=== PATIENT | female | born 1980 | race American Indian/Alaskan Native ===

== ENCOUNTER 2020-01-09 09:20 | Outpatient (CLI) | payer OTHER, SELFPAY ==
[2020-01-10 14:04] LABS: SARS-CoV-2 RNA PCR Positive
== END 2020-01-09 09:21 | disposition home or self-care (01) ==
LOC: CHSLAB 09:24
PROVIDERS: PCP Family Medicine; Visit Provider Family Medicine
DX: U07.1 COVID-19 (principal)
CPT/HCPCS: 87635; C9803; U0003

== ENCOUNTER 2020-09-17 13:20 | Outpatient (CLI) | payer OTHER, SELFPAY ==
[2020-09-17 14:20] LABS: Hematocrit 35.3 % (37.0-47.0); Hemoglobin 11.5 g/dL (12.0-15.0)
== END 2020-09-17 13:21 | disposition home or self-care (01) ==
LOC: ANHSURGERY 13:24
PROVIDERS: PCP Family Medicine; Visit Provider Obstetrics & Gynecology
DX: N93.9 Abnormal uterine and vaginal bleeding, unspecified (principal)
CPT/HCPCS: 36415; 85014; 85018

== ENCOUNTER → 2020-09-20 03:43 | Outpatient (CLI) | payer OTHER, SELFPAY ==
[2020-09-20 18:53] LABS: SARS-CoV-2 RNA PCR Negative
== END ==
PROVIDERS: PCP Family Medicine; Visit Provider Obstetrics & Gynecology
DX: Z01.812 Encounter for preprocedural laboratory examination (principal); Z20.822 Contact with and (suspected) exposure to COVID-19
CPT/HCPCS: C9803; U0003; U0005

== ENCOUNTER 2020-09-23 01:12 | Day surgery (SDC) | payer OTHER, SELFPAY ==
[2020-09-16 14:13] VITALS: BMI 33.0
--- NOTE | 2020-09-21 07:51 | PM.IMHP ---
H&P: HPI History of Present Illness Date/Time: 09/21/20 07:51 40-year-old admitted for hysteroscopy polypectomy and dilatation curettage. She complains of heavy periods and there appears to be a polyp in the endocervix. Risks and benefits reviewed in full. She will undergo ablation at the same time Chief Complaint: heavy bleeding and polyp Review of Systems Review of Systems: All systems reviewed & are unremarkable except as noted in HPI and below PMFSH Family History Family History Grandparent Diabetes mellitus Family history of type 1 diabetes mellitus Mother Depression Hypertension Social History Social History Smoking status: Never smoker Second hand tobacco smoke exposure: No Alcohol intake: never Substance use: current Substance use type: marijuana Last use: 09-14-20 Spiritual care concerns: No Meds Home Medications and Allergies Home Medications Medication Instructions Recorded Confirmed Type metoprolol succinate 50 mg PO DAILY 09/16/20 09/16/20 History venlafaxine 225 mg PO DAILY 09/16/20 09/16/20 History Allergies Allergy/AdvReac Type Severity Reaction Status Date / Time No Known Allergies Allergy Unknown Verified 09/16/20 14:10 Exam Const: General: no acute distress Eyes: General: appearance normal, both eyes and all related structures Neck: Neck: supple and no JVD Thyroid: thyroid normal Resp: Effort & Inspection: normal respiratory effort Auscultation: clear to auscultation bilaterally Cardio: Rate: regular rate Rhythm: regular rhythm GI: Inspection: non-distended GI Palp: Yes Soft to palpation, No Tenderness to palpation present (GI) and No Guarding due to palpation present (GI) Auscultation: normal bowel sounds : General: Yes bladder normal to palpation External Female Exam: normal external appearance Speculum Exam - Vagina: normal vaginal discharge and No vaginal bleeding Speculum Exam - Cervix: nontender Bimanual exam- vagina & uterus: bladder normal to palpation and No Cervical tenderness present OB/external & speculum: No vaginal bleeding Skin: General skin exam: no rashes or lesions noted Extrem: General: normal to inspection and no edema Psych: Mental Status: mental status grossly normal Affect: normal affect Assessment and Plan Additional Plan impression: Uterine polyp and bleeding Plan: Hysteroscopy/ dilatation and curettage/polypectomy / endometrial ablation
--- NOTE | 2020-09-23 06:59 | WPDHPUPDATE1 ---
History and Physical Update Update Date/Time: 09/23/20 06:59 History and Physical has been reviewed, including an updated exam of the patient. There are NO changes in the patient's condition. Risks, benefits, and alternatives have been discussed and questions answered. Patient agrees to proceed with procedure.
[2020-09-23 07:29] VITALS: BP 174/103; PULSE 74; RESP 16; TEMP 36.4; O2SAT 100
[2020-09-23] MEDS: ACETAMINOPHEN 500 MG TABLET 1000 MG PO (07:39)
[2020-09-23] MEDS: LACTATED RINGERS 1,000 ML 30 ML IV CONT (08:00)
--- NOTE | 2020-09-23 08:12 | WPDANESEPPF ---
Anes - Initial Pre Proc Eval Procedure: Operation Date: 09/23/20 09:00 Proposed Procedures p Hysteroscopy, Dilation and Curettage, Polypectomy, Tracey Endometrial Ablation - Reinier Steele MD Date/Time: 09/23/20 08:12 Surgeon: Reinier Steele MD Pre Op Diagnosis: heavy bleeding, uterine polyp Patient Data Age: 40 Gender: F Height: 1.57 m Weight: 85 kg Last Vital Signs Temp 36.4 C 09/23/20 07:29 Pulse 74 09/23/20 07:29 Resp 16 09/23/20 07:29 BP 174/103 H 09/23/20 07:29 Pulse Ox 100 09/23/20 07:29 Allergies Allergy/AdvReac Type Severity Reaction Status Date / Time No Known Allergies Allergy Unknown Verified 09/23/20 07:34 Home Medications Medication Instructions Recorded Confirmed Type metoprolol succinate 50 mg PO DAILY 09/16/20 09/23/20 History venlafaxine 225 mg PO DAILY 09/16/20 09/23/20 History hydrocodone-acetaminophen 1 tablet PO Q4H PRN #20 tablet 09/23/20 Rx zpoxmivkdsgs-yiyw-ziwih acid 1 tablet PO DAILY 09/23/20 09/23/20 History [Centrum] Patient hx anesthesia problems: none Family hx anesthesia problems: none PMFSH Past Medical History Medical History (Updated 09/23/20 @ 08:15 by Patel Echols MD) Abnormal uterine bleeding Depression HTN (hypertension) Family History Family History Grandparent Diabetes mellitus Family history of type 1 diabetes mellitus Mother Depression Hypertension Social History Social History Smoking status: Never smoker Second hand tobacco smoke exposure: No Alcohol intake: never Substance use: current Substance use type: marijuana Last use: 09-14-20 Living arrangements: with family Spiritual care concerns: No Anes - Eval Final PreProcedure Day of Procedure 09/23/20 08:12 Patient weight: obese Heart: regular rate and rhythm Lungs: clear to auscultation and normal air movement Airway: Mallampati scale class II Neurological: alert and oriented Last oral intake: >/= 8 hours ASA classification: II Emergent: no Anesthetic plan: proceed Anesthesia type and monitoring: general GIVS and LMA Informed Consent: The patient's anesthetic plan and its attendant risks and benefits were discussed with the patient/family/POA. Questions were solicited and answers provided to the satisfaction of the patient/family/POA.
[2020-09-23] MEDS: KETOROLAC 30 MG/ML VIAL (*BKC) 15 MG IV PUSH (09:07)
[2020-09-23 09:30] VITALS: BP 119/71; PULSE 70; RESP 18; O2SAT 94
--- NOTE | 2020-09-23 09:31 | W.PM.PROC2 ---
Procedure Note - Detailed Date of Procedure 09/23/20 Pre-op Diagnosis heavy bleeding, uterine polyp Post-op Diagnosis same Procedure Performed Hysteroscopy / dilatation and curettage/polypectomy / endometrial ablation Surgeon Reinier Steele MD Anesthesia MAC and local Indications this is a patient with excessive heavy bleeding and suspected polyp Findings uterus sounded to7.5cm. A fundal polyp with benign appearance Description of Procedure the patient is prepped draped and placed in the dorsal lithotomy position. Under excellent IV sedation weighted speculum was placed in the posterior fornix vagina. Anterior lip of the cervix grasped with single-tooth tenaculum and 2.5cc of 1% xylocaine anesthesia placed at 2, 4, 8, 10:00 a.m. of the cervix. Uterus sounded to7.5cm. Serial dilatation with fragmented dilators performed followed by passage of the 5mm visualizing hysteroscope using normal saline as visualizing medium. Small polyp was seen at the fundus and this was picked with a polyp forcep. Each fallopian tube os could be seen and the remainder the uterus appeared within normal limits. The uterus was scraped over the entire 360? until a good grating sound was heard. Next the endometrial ablated instrument was placed in the uterus. It was burned for a total of 120seconds. Blood loss was estimated at5cc. All sponge, needle, instrument counts were correct. There were no immediate complications Estimated Blood Loss 5 Drains No Packing No Pathology yes Complications No immediate complications Condition stable Disposition PACU
[2020-09-23 09:45] VITALS: BP 120/80; PULSE 65; RESP 20; O2SAT 96
[2020-09-23 10:15] VITALS: BP 163/101; PULSE 62; RESP 20
[2020-09-23] MEDS: oxyCODONE HCL (*CRX) 5 MG TAB IR PO (10:17)
[2020-09-23 10:45] VITALS: BP 173/94; PULSE 58; RESP 20
== END 2020-09-23 11:00 | disposition home or self-care (01) ==
PROVIDERS: PCP Family Medicine; Visit Provider Obstetrics & Gynecology
PROC: 0U5B8ZZ Destruction of Endometrium, Via Natural or Artificial Opening Endoscopic (ICD-10-PCS; CPT 58563; principal; 2020-09-23 09:00)
DX: N93.9 Abnormal uterine and vaginal bleeding, unspecified (principal); F12.90 Cannabis use, unspecified, uncomplicated; N84.0 Polyp of corpus uteri; F32.9 Major depressive disorder, single episode, unspecified; I10 Essential (primary) hypertension; E66.9 Obesity, unspecified; Z68.34 Body mass index [BMI] 34.0-34.9, adult
CPT/HCPCS: 58563; 88305; A9270; C9803; J1100; J1885; J2250; J2405; J2704; J3010; J7030; J7120; U0003; U0005

== ENCOUNTER 2020-11-13 08:30 | Outpatient (CLI) | payer OTHER, SELFPAY ==
[2020-11-13 08:41] LABS: Basophils Absolute Auto 0.07 K/mm3 (0.00-0.10); Basophils Percent Auto 0.5 % (0.0-1.0); Eosinophils Percent Auto 2.3 % (1.0-6.0); Hematocrit 38.2 % (35.0-49.0); Hemoglobin 12.4 g/dL (12.0-15.0); Immature Granulocyte Absolute 0.05 K/mm3 (0.00-0.00); Immature Granulocyte Percent A 0.4 % (0.0-0.0); Lymphocytes Absolute Auto 4.17 K/mm3 (1.10-4.50); Mean Corpuscular HGB Conc 32.5 g/dL (32.0-36.0); Mean Corpuscular Hemoglobin 27.9 pg (27.0-31.0); Mean Corpuscular Volume 85.8 fL (78.0-102.0); Mean Platelet Volume 8.9 fl (9.2-11.8); Monocytes Absolute Auto 0.95 K/mm3 (0.10-0.90); Monocytes Percent Auto 7.3 % (2.0-11.0); Neutrophils Absolute Auto 7.5 K/mm3 (1.7-7.2); Neutrophils Percent Auto 57.5 % (50.0-70.0); Platelet Count Result 493 K/mm3 (150-420); Red Blood Count 4.45 M/mm3 (4.20-5.40); Red Cell Distribution Width 14.4 % (11.6-14.4); White Blood Count 13.1 K/mm3 (4.8-10.8)
[2020-11-13 09:14] LABS: Alanine Aminotransferase 25 U/L (14-59); Albumin Level 4.1 g/dL (3.4-5.0); Alkaline Phosphatase 97 U/L (46-116); Anion Gap 12 mmol/L (8-16); Aspartate Amino Transferase 14 U/L (15-37); Bilirubin,Total 0.3 mg/dL (0.00-1.00); Blood Urea Nitrogen 10 mg/dL (7-18); Calcium 8.8 mg/dL (8.5-10.1); Carbon Dioxide 25 mmol/L (21-32); Chloride 105 mmol/L (98-108); Cholesterol 222 mg/dL (0-200); Estimated Glomerular Filt Rate > 60; Glucose 97 mg/dL (70-99); HDL Direct 31 mg/dL (40-60); Iron 45 ug/dL (50-170); LDL Cholesterol Calculated 131 mg/dL (<130); Osmolality Calculated 293 mOsm/kg (285-295); Percent Iron Saturation 11 % (12-57); Sodium 142 mmol/L (136-145); Thyroid Stimulating Hormone 5.95 uIU/mL (0.36-3.74); Total Protein 7.5 g/dL (6.4-8.2); Triglycerides 301 mg/dL (0-150)
== END 2020-11-13 08:31 | disposition home or self-care (01) ==
LOC: CHSLAB 08:32
PROVIDERS: PCP Family Medicine; Visit Provider Family Medicine
DX: D50.0 Iron deficiency anemia secondary to blood loss (chronic) (principal); I10 Essential (primary) hypertension; F32.1 Major depressive disorder, single episode, moderate; Z13.220 Encounter for screening for lipoid disorders
CPT/HCPCS: 36415; 80053; 80061; 83540; 83550; 84443; 85025

== ENCOUNTER 2021-05-19 11:13 | Outpatient (CLI) | payer OTHER, SELFPAY ==
--- NOTE | ~2021-05-19 | CT_ITS ---
EXAMINATION: CT abdomen pelvis wo con EXAM DATE: 05/19/2021 11:33 INDICATION: R31.0 - Gross hematuria, right flank pain. Nausea, dry heaving. TECHNIQUE: Spiral CT of the abdomen and pelvis was performed without contrast. Axial, coronal and sag ittal images were reviewed. The dose-length product (DLP) for this examination was 508.21 mGy-cm. T he exposure was tailored according to patient size (auto mA exposure control), and iterative reconstr uction (ASIR) was used as additional dose reduction technique. There is no prior study for compariso n. FINDINGS: Small supraumbilical midline fat-containing hernia. There is no nephrolithiasis or hydronep hrosis. The uterus is retroverted and morphologically normal. The bladder is unremarkable. The l iver, spleen, adrenal glands and pancreas are unremarkable. Gallbladder is unremarkable. No biliary obstruction. There is no retroperitoneal or pelvic lymphadenopathy. The appendix is normal. The stomach and small bowel are unremarkable. There is expected amount of c olonic stool. No free intraperitoneal gas. The heart is normal in size. There are no pericardial or pleural effusions. The lung bases are unremarkable. The bones are unremarkable. IMPRESSION: 1. No nephrolithiasis, hydronephrosis or acute intra-abdominal findings. 2. Small supraumbilical fat-containing hernia. Reviewed, dictated and finalized at location B.
== END 2021-05-19 11:14 ==
PROVIDERS: PCP Family Medicine; Visit Provider Family Medicine
DX: N20.9 Urinary calculus, unspecified (principal); R10.9 Unspecified abdominal pain; R31.0 Gross hematuria; K42.9 Umbilical hernia without obstruction or gangrene
CPT/HCPCS: 74176

== ENCOUNTER 2021-07-02 12:55 | Outpatient (CLI) | payer OTHER, SELFPAY ==
--- NOTE | 2021-07-02 13:13 | ECG_ITS ---
Measurements Intervals [place] Rate: 67 P: 37 IN: 135 QRS: 17 QRSD: 90 T: 22 QT: 384 QTc: 406 Interpretive Statements SINUS RHYTHM INCOMPLETE RIGHT BUNDLE BRANCH BLOCK BASELINE ARTIFACT- I, II, III, AVR, AVL, AVF BORDERLINE ECG Electronically Signed On 07-02-2021 13:42:37 CDT by Edilberto Youngblood D.O.
[2021-07-02 13:37] LABS: Basophils Absolute Auto 0.1 K/mm3 (0.0-0.1); Basophils Percent Auto 0.5 % (0.2-1.2); Eosinophils Absolute Auto 0.2 K/mm3 (0-0.3); Eosinophils Percent Auto 1.8 % (0-4.4); Hematocrit 37.7 % (37.0-47.0); Hemoglobin 12.8 g/dL (12.0-15.0); Immature Granulocyte Absolute 0.03 K/mm3 (0.00-0.031); Immature Granulocyte Percent A 0.3 % (0-0.5); Lymphocytes Absolute Auto 2.94 K/mm3 (0.9-3.2); Lymphocytes Percent Auto 31.5 % (18.3-44.2); Mean Corpuscular Hemoglobin 30.3 pg (26-34); Mean Corpuscular Volume 89.3 fl (80-100); Mean Platelet Volume 9.3 fl (7.4-10.4); Monocytes Absolute Auto 0.9 K/mm3 (0.1-0.6); Monocytes Percent Auto 9.4 % (2.6-8.5); Neutrophils Absolute Auto 5.3 K/mm3 (1.3-6.7); Neutrophils Percent Auto 56.5 % (45.5-73.1); Platelet Count Result 420 k/mm3 (150-375); Red Blood Count 4.22 M/mm3 (4.2-5.4); Red Cell Distribution Width 13.6 % (11.5-14.5); White Blood Count 9.3 K/mm3 (4.5-10.0)
== END 2021-07-02 12:56 | disposition home or self-care (01) ==
LOC: ANHSURGERY 12:59
PROVIDERS: PCP Family Medicine; Visit Provider Obstetrics & Gynecology
DX: D21.9 Benign neoplasm of connective and other soft tissue, unspecified (principal); I10 Essential (primary) hypertension; I45.10 Unspecified right bundle-branch block
CPT/HCPCS: 36415; 85025; 86850; 86900; 86901; 93005

== ENCOUNTER 2021-07-04 01:17 | Day surgery (SDC) | payer OTHER, SELFPAY ==
--- NOTE | 2021-07-01 11:16 | PM.IMHP ---
H&P: HPI History of Present Illness Date/Time: 07/01/21 11:16 41-year-old 3 para 3 admitted for robotic total hysterectomy and bilateral salpingectomy secondary to uterine fibroids pelvic pain and failed ablation with irregular bleeding. She has gotten ultrasound shows a retroverted uterus with fibroids her the your ablation has failed she continues to bleed irregularly risks and benefits reviewed including but not exclusive of aspiration when he bleeding transfusion infection perforation injury to bowel bladder ureters or other internal organs the need for open laparotomy. She received the [employer] handout entitled hysterectomy. She received the handout from [employer]. She asked to proceed Chief Complaint: Pelvic pain and bleeding Review of Systems Review of Systems: All systems reviewed & are unremarkable except as noted in HPI and below PMFSH Past Medical History Medical History Abnormal uterine bleeding Anemia BMI 32.0-32.9,adult BMI 33.0-33.9,adult BMI 34.0-34.9,adult Depression Flank pain Hematuria HTN (hypertension) Hypothyroidism Insomnia Urinary calculus, unspecified Family History Family History Grandparent Diabetes mellitus Family history of type 1 diabetes mellitus Mother Depression Hypertension Social History Social History Second hand tobacco smoke exposure: No Alcohol intake: never Substance use: current Substance use type: marijuana Last use: 09-14-20 Spiritual care concerns: No Meds Home Medications and Allergies Home Medications Medication Instructions Recorded Confirmed Type xqrewxrdcsxb-ivfn-kwtnz acid 1 tablet PO DAILY 09/23/20 05/19/21 History [Centrum] metoprolol succinate 50 mg 50 mg PO DAILY #90 tablet 02/13/21 05/19/21 Rx tablet,extended release 24 hr fluoxetine 20 mg capsule 20 mg PO DAILY #90 cap 03/13/21 05/19/21 Rx levothyroxine 50 mcg tablet 50 mcg PO DAILY #90 tablet 05/14/21 05/19/21 Rx tramadol 50 mg tablet 50 mg PO Q8H PRN #30 tablet 05/19/21 05/19/21 Rx bupropion HCl 150 mg 24 hr tablet, 150 mg PO QAM #90 tablet 06/06/21 Rx extended release Allergies Allergy/AdvReac Type Severity Reaction Status Date / Time No Known Allergies Allergy Unknown Verified 05/19/21 08:44 Exam Const: General: no acute distress Eyes: General: appearance normal, both eyes and all related structures Neck: Neck: supple and no JVD Thyroid: thyroid normal Resp: Effort & Inspection: normal respiratory effort Auscultation: clear to auscultation bilaterally Cardio: Rate: regular rate Rhythm: regular rhythm GI: Inspection: non-distended GI Palp: Yes Soft to palpation, No Tenderness to palpation present (GI) and No Guarding due to palpation present (GI) Auscultation: normal bowel sounds : External Female Exam: normal external appearance Speculum Exam - Vagina: normal appearance of the vagina Speculum Exam - Cervix: Cervical os closed Bimanual exam- vagina & uterus: enlarged and fixed Bimanual Exam- Adnexa, other: normal adnexae Skin: General skin exam: no rashes or lesions noted Extrem: General: normal to inspection and no edema Psych: Mental Status: mental status grossly normal Affect: normal affect Assessment and Plan Additional Plan Impression: Enlarged uterus with pelvic pain and bleeding and failed ablation Plan: Robotic total vaginal hysterectomy and bilateral salpingectomies
[2021-07-01 14:58] VITALS: BMI 31.4
--- NOTE | 2021-07-01 15:02 | PC.NURSE ---
Report to the Outpatient Waiting Room, entrance under the green pavilion located off [facility], at time _0600_ on date _07-04-21_. OR Time: _07_. - You and your visitor will be asked a series of questions to screen for COVID 19 for your protection. - Only one visitor is allowed at this time. - The patient visitor is requested to leave or wait in car when not with patient. - A mask is required within the hospital. Patients may have clear liquids (water, carbonated beverages, clear teas, apple juice) until 3 hours prior to surgery with a maximum of 20 ounces. - No food from midnight until time of surgery Take the following medications with a SIP of water the morning of surgery: ____Metoprolol, Bupropion, Fluoxetine and Levothyroxine___ Medications to discontinue per physician ___Multivitamin Date to take last dose___Stop today.____ Please no make-up, nail english, hairspray, perfume, deodorant, or body powder the day of surgery. No jewelry (including any body piercings) or valuables the day of surgery, leave them at home. Please take a shower or bath the night before, or the morning of, surgery with an antibacterial soap. Wear comfortable, loose fitting clothing. Children are encouraged to wear pajamas. - Jewelry must be removed prior to entering the operating room. Rings and piercings that are not removed may be cut off. - The hospital will not accept responsibility for valuables. - Please leave all valuables, including medications, at home the day of surgery. If you are going home after surgery, a licensed bulk driver must drive you home. - NO public transportation without another adult. - We recommend that an adult stay with you for 24 hours following discharge. - We also recommend that you do not drive, make important decision, drink alcoholic beverages, or take any drugs that were not prescribed by your health care provider for at least 24 hours after your discharge time. Follow any additional instructions given to you from your surgeon. If you or anyone in your household have experienced Covid symptoms in the past week, please notify your surgeon or the nurse liaison at the phone number below for possible testing. Telephone instructions given to Patient and asked if any additional questions and then verbalized understanding. Patient advised to call surgeon office or pre surgery nurse liaison [phone] if any additional questions.
[2021-07-04] VITALS (13 sets, daily range): BP systolic 138–166; BP diastolic 85–108; PULSE 61–78; RESP 10–20; TEMP 36.2–37.2; O2SAT 96–100
--- NOTE | 2021-07-04 06:43 | WPDHPUPDATE1 ---
History and Physical Update Update Date/Time: 07/04/21 06:43 History and Physical has been reviewed, including an updated exam of the patient. There are NO changes in the patient's condition. Risks, benefits, and alternatives have been discussed and questions answered. Patient agrees to proceed with procedure.
--- NOTE | 2021-07-04 06:54 | P.PNAN_ITS ---
Anes - Initial Pre Proc Eval Procedure: Operation Date: 07/04/21 07:30 Proposed Procedures p Robotic Assisted Total Vaginal Hysterectomy with Bilateral Salpingectomy - Reinier Ross MD Date/Time: 07/04/21 06:54 Surgeon: Reinier Ross MD Pre Op Diagnosis: fibroids, pelvic pain, irregular bleeding Patient Data Age: 41 Gender: F Height: 1.57 m Weight: 78 kg Allergies Allergy/AdvReac Type Severity Reaction Status Date / Time No Known Allergies Allergy Unknown Verified 07/01/21 14:57 Home Medications Medication Instructions Recorded Confirmed Type rjsqfliilizt-pcsx-fumea acid 1 tablet PO DAILY 09/23/20 07/01/21 History [Centrum] metoprolol succinate 50 mg 50 mg PO DAILY #90 tablet 02/13/21 07/01/21 Rx tablet,extended release 24 hr fluoxetine 20 mg capsule 20 mg PO DAILY #90 cap 03/13/21 07/01/21 Rx levothyroxine 50 mcg tablet 50 mcg PO DAILY #90 tablet 05/14/21 07/01/21 Rx tramadol 50 mg tablet 50 mg PO Q8H PRN #30 tablet 05/19/21 07/01/21 Rx bupropion HCl 150 mg 24 hr tablet, 150 mg PO QAM #90 tablet 06/06/21 07/01/21 Rx extended release hydrocodone-acetaminophen 1 tablet PO Q4H PRN #30 tablet 07/04/21 Rx Patient hx anesthesia problems: none Family hx anesthesia problems: none Results Review: All pre-operative results and documents have been reviewed as part of the pre-operative evaluation. [facility] Past Medical History Medical History Abnormal uterine bleeding Anemia BMI 32.0-32.9,adult BMI 33.0-33.9,adult BMI 34.0-34.9,adult Depression Flank pain Hematuria HTN (hypertension) Hypothyroidism Insomnia Urinary calculus, unspecified Family History Family History Grandparent Diabetes mellitus Family history of type 1 diabetes mellitus Mother Depression Hypertension Social History Social History Second hand tobacco smoke exposure: No Alcohol intake: never Substance use: current Substance use type: marijuana Other substance usage details: Daily Last use: 09-14-20 Living arrangements: with family Spiritual care concerns: No Anes - Eval Final PreProcedure Day of Procedure 07/04/21 06:54 Patient weight: obese Heart: regular rate and rhythm Lungs: clear to auscultation Airway: Mallampati scale class II Neurological: alert and oriented Last oral intake: >/= 8 hours ASA classification: III Emergent: no Anesthetic plan: proceed Anesthesia type and monitoring: general ETT and standard monitoring Results Review: All pre-operative results and documents have been reviewed as part of the pre-operative evaluation. Informed Consent: The patient's anesthetic plan and its attendant risks and benefits were discussed with the patient/family/POA. Questions were solicited and answers provided to the satisfaction of the patient/family/POA.
[2021-07-04] MEDS: ACETAMINOPHEN 500 MG TABLET 1000 MG PO (07:13)
[2021-07-04] MEDS: LACTATED RINGERS 1,000 ML 30 ML IV CONT ×2 (07:14→09:26)
[2021-07-04] MEDS: KETOROLAC 15 MG/ML VIAL (*BKC) IV PUSH (07:14)
[2021-07-04] MEDS: SCOPOLAMINE 1.5 MG PATCH TRANSDERM (07:30)
[2021-07-04] MEDS: ceFAZolin 2 GM/D5W 50 ML 2 GM/50 ML BAG IVPB (07:33)
--- NOTE | 2021-07-04 08:44 | W.PM.PROC2 ---
Procedure Note - Detailed Date of Procedure 07/04/21 Pre-op Diagnosis fibroids, pelvic pain, irregular bleeding Post-op Diagnosis Same Procedure Performed Robotic total vaginal hysterectomy and bilateral salpingectomies Surgeon Reinier Ross MD Anesthesia General Indications This 41-year-old female with pain bleeding and discomfort refractory to medical therapy Findings Enlarged uterus. Normal-appearing tubes and ovaries bilaterally. Description of Procedure Patient was prepped draped sterile fashion placed in the dorsal lithotomy position. Under excellent general trach anesthesia weighted speculum placed in posterior fornix vagina. Anterior lip of the cervix grasped with single-tooth tenaculum. Uterus sounded to 8cm. Serial dilatation with fragmented dilators performed followed passes the 6. JOI and the 3. Cold cup. Next the 16 Turkmen catheter was placed in the bladder to drain clear urine. The weighted speculum and single-tooth removed. The gloves were changed. A supraumbilical incision made the Veress needle passed in the abdomen. Abdomen filled with CO2 gas [id number]. The 8mm trocar advanced in the abdomen the downside visualized no injury seen. Gas reattached patient placed in Trendelenburg and left and right lateral quadrant incisions made with 8mm trocars advanced under direct visualization assuring no injury. Right upper quadrant incision made the 8mm trocar advanced under direct visualization assuring no injury. The robot was docked. Attention was turned to the automobile club travel counselor. The left round ligament was grasped, burned, cut. Anteriorly a bladder flap was formed by sharply dissecting the peritoneum and reflecting the bladder caudally away from the cervix and uterus to the opposite round ligament was clamped, burned, cut. Next left fallopian tube was sharply dissected using monopolar cautery and left attached to the uterine origin. This was repeated on the contralateral side remove the right fallopian tube. The left utero-ovarian ligament was clamped burned and cut and brought to the level of previously cut round ligament conserving the left ovary. Conserving the right ovary right utero-ovarian ligament was clamped, burned, cut and brought to the level of previously cut round ligament on the right. Next the left cardinal broad ligaments were serially skeletonized clamping burning cutting wall hugging the uterus and cervix until the large tortuous blood vessels could be seen on the left. These were individually clamped, burned, cut. In like fashion the cardinal and broad ligaments on the right were serially skeletonized clamping burning cutting and hugging the uterine uterus and cervix until the uterine vessels could be visualized on the right. These 2 were large and tortuous. They were individually clamped, burned, cut. Blanching of the uterus was noted and a colpotomy incision made the cervix uterus and tubes removed through the vagina. Blood loss estimated [id number]. The vagina was then closed with continuous running 0V lock from lateral edge to lateral edge back to the midline. Irrigation undertaken to clear and hemostasis was assured blood loss for the entire procedure and estimated at25cc. All sponge, needle, instrument counts were correct. Robot was undocked. Trocars removed after the gas removed from the abdomen and these incisions closed with 4 Monocryl and glue the patient was awakened and went to recovery in satisfactory condition Estimated Blood Loss 25 Drains No Packing No Pathology Yes Complications No immediate complications Condition Stable Disposition PACU
[2021-07-04] MEDS: fentaNYL CITRATE INJ (*CRX) 100 MCG/2 ML VIAL 25 MCG IV PUSH ×4 (09:26→09:43)
--- NOTE | 2021-07-04 10:20 | PC.NURSE ---
PT arrived on unit via bed unaccompanied and taken to room 289. PT alert and awake and oriented to room and surroundings. PT introductions made and plan of care discussed per post op traffic routing engineer surgery, pain management, daily care activities. PT sole recipient of such instructions and no barriers to learning identified at this time. PT verbalized understanding of such care.
[2021-07-04] MEDS: DEXTROSE 5%/LACTATED RINGERS 1,000 ML 125 ML IV CONT (10:38)
[2021-07-04] MEDS: HYDROcodone/acetaminophen (*CRX) 5-325 MG TABLET 1 TAB PO ×2 (10:44→13:59)
[2021-07-04] MEDS: KETOROLAC 30 MG/ML VIAL (*BKC) IV PUSH (13:58)
[2021-07-04] MEDS: SIMETHICONE 80 MG TAB.CHEW PO ×2 (14:00→17:24)
[2021-07-04] MEDS: ENOXAPARIN 40 MG/0.4 ML SYRINGE SUB-Q (14:01)
[2021-07-04] MEDS: DOCUSATE SODIUM 100 MG CAPSULE PO (17:24)
[2021-07-04] MEDS: HYDROcodone/acetaminophen (*CRX) 10-325 MG TABLET 1 TAB PO ×2 (17:25→20:47)
[2021-07-04] MEDS: IBUPROFEN 600 MG TABLET PO (20:47)
[2021-07-05 04:11] VITALS: BP 147/93; PULSE 69; RESP 16; TEMP 36.7
[2021-07-05] MEDS: HYDROcodone/acetaminophen (*CRX) 10-325 MG TABLET 1 TAB PO ×2 (04:12→11:38)
[2021-07-05] MEDS: IBUPROFEN 600 MG TABLET PO ×2 (04:12→11:37)
[2021-07-05 04:51] LABS: Basophils Percent Auto 0.2 % (0.2-1.2); Eosinophils Percent Auto 0.1 % (0-4.4); Hematocrit 37.8 % (37.0-47.0); Hemoglobin 12.1 g/dL (12.0-15.0); Immature Granulocyte Absolute 0.08 K/mm3 (0.00-0.031); Immature Granulocyte Percent A 0.4 % (0-0.5); Lymphocytes Absolute Auto 2.88 K/mm3 (0.9-3.2); Lymphocytes Percent Auto 16.1 % (18.3-44.2); Mean Corpuscular Hemoglobin 29.9 pg (26-34); Mean Corpuscular Volume 93.3 fl (80-100); Mean Platelet Volume 9.4 fl (7.4-10.4); Monocytes Absolute Auto 1.4 K/mm3 (0.1-0.6); Monocytes Percent Auto 7.7 % (2.6-8.5); Neutrophils Absolute Auto 13.5 K/mm3 (1.3-6.7); Neutrophils Percent Auto 75.5 % (45.5-73.1); Platelet Count Result 404 k/mm3 (150-375); Red Blood Count 4.05 M/mm3 (4.2-5.4); Red Cell Distribution Width 13.6 % (11.5-14.5); White Blood Count 17.9 K/mm3 (4.5-10.0)
[2021-07-05 09:00] VITALS: PULSE 71; RESP 18; O2SAT 96
[2021-07-05] MEDS: DOCUSATE SODIUM 100 MG CAPSULE PO (09:16)
[2021-07-05] MEDS: ENOXAPARIN 40 MG/0.4 ML SYRINGE SUB-Q (09:16)
[2021-07-05 09:24] VITALS: BP 163/97; PULSE 71; RESP 18; TEMP 36.8; O2SAT 96
--- NOTE | 2021-07-05 11:12 | P.DS_ITS ---
DS: Admitting Diagnosis Discharge Date 07/05/21 Admitting Diagnosis pelvic pain abnormal uterine bleeding uterine fibroids DS: Summary Hospital Course Hospital Course: Muriel Escobar was admitted after robotic assisted total laparoscopic hysterectomy and bilateral salpingectomy for abnormal uterine bleeding. The above procedure was performed with no complications. She is doing well post op. She states her pain is well controlled with PO medications. She reports minimal bleeding. She is ambulating up to the chair. Her crenshaw catheter was removed. She is tolerating PO without N/V. She reports passing flatus. Status at Discharge Overall status at discharge: patient is progressing back to baseline Time Spent with Patient Time attestation: Total time spent providing and/or coordinating discharge services: Time spent: Less than 30 minutes Exam Const: General: comfortable and no acute distress Limitations: no limitations Resp: Effort & Inspection: normal respiratory effort Auscultation: clear to auscultation bilaterally Cardio: Rate: regular rate Rhythm: regular rhythm GI: Inspection: non-distended GI Palp: Yes Soft to palpation, Yes Tenderness to palpation present (GI) (milder tenderness to deep palpation) and No Guarding due to palpation present (GI) Auscultation: normal bowel sounds Other: incisions C/D/I covered with dermabond Urinary Catheter: Urinary Catheter: urine clear Skin: General skin exam: normal color Extrem: General: normal to inspection Psych: Mental Status: mental status grossly normal Affect: normal affect DS: Data Data Completed and Pending Pending studies at discharge: Pending at discharge 07/04/21 08:14 Surgical [PTH] Routine Labs on day of discharge: Labs from last 24 hours 07/05/21 04:15 WBC 17.9 H RBC 4.05 L Hgb 12.1 Hct 37.8 MCV 93.3 MCH 29.9 MCHC 32.0 RDW 13.6 Plt Count 404 H MPV 9.4 Immature Gran % (Auto) 0.4 Neut % (Auto) 75.5 H Lymph % (Auto) 16.1 L Pettis % (Auto) 7.7 Eos % (Auto) 0.1 Baso % (Auto) 0.2 Lymph # (Auto) 2.88 Pettis # (Auto) 1.4 H Eos # (Auto) 0.0 Baso # (Auto) 0.0 Abs Immat Gran (auto) 0.08 H Absolute Neuts (auto) 13.5 H Absolute Nucleated RBC 0.0 Nucleated RBC % 0.0 Discharge Plan Discharge Patient Disposition: Home, Self-Care Discharge Instructions: Remove the Scopolamine patch that was placed behind your ear in 72 hours or less. Wash your hands after touching. Stand Alone Forms: General Discharge Instructions Follow-up/Referrals: Reinier Solomon MD [Physician] - Discharge Medications: New hydrocodone-acetaminophen 5-325 mg tablet 1 tablet PO Q4H PRN (Reason: pain) Qty: 30 RF: 0 No Action tramadol 50 mg tablet 50 mg PO Q8H PRN (Reason: pain) Qty: 30 RF: 0 fluoxetine 20 mg capsule 20 mg PO DAILY Qty: 90 RF: 1 Centrum 18-400 mg-mcg Tablet 1 tablet PO DAILY RF: 0 metoprolol succinate 50 mg tablet extended release 24 hr 50 mg PO DAILY Qty: 90 RF: 1 levothyroxine 50 mcg tablet 50 mcg PO DAILY Qty: 90 RF: 0 bupropion HCl 150 mg tablet extended release 24 hr 150 mg PO QAM Qty: 90 RF: 0
[2021-07-05] MEDS: SIMETHICONE 80 MG TAB.CHEW PO (11:38)
== END 2021-07-05 11:50 | disposition home or self-care (01) ==
LOC: ANHSURGERY 06:44 → ANHOB2 10:14
PROVIDERS: PCP Family Medicine; Visit Provider Obstetrics & Gynecology
PROC: (CPT 58552; principal; 2021-07-04 07:30)
DX: N93.9 Abnormal uterine and vaginal bleeding, unspecified (principal); N80.0 Endometriosis of uterus; N94.89 Other specified conditions associated with female genital organs and menstrual cycle; R10.2 Pelvic and perineal pain; I10 Essential (primary) hypertension; E03.9 Hypothyroidism, unspecified; F32.9 Major depressive disorder, single episode, unspecified; F12.90 Cannabis use, unspecified, uncomplicated; E66.9 Obesity, unspecified; Z68.30 Body mass index [BMI] 30.0-30.9, adult
CPT/HCPCS: 58552; S2900; 36415; 85025; 88307; 99199; A9270; J0690; J1100; J1650; J1885; J2250; J2405; J2704; J2710; J3010; J7030; J7120; J7121

== ENCOUNTER 2022-12-16 09:35 | Outpatient (CLI) | payer BC, SELFPAY ==
--- NOTE | ~2022-12-16 | CT_ITS ---
EXAMINATION: CT abdomen pelvis wo/w con DATE: 12/16/2022 10:16 INDICATION: Hematuria TECHNIQUE: Computed tomography (CT) of the abdomen and pelvis was performed without and with 130 cc O mnipaque 350 intravenous contrast. The dose-length product was 1552.54 mGy-cm. Automated exposure con trol and iterative reconstruction technique were employed. COMPARISON: CT dated 05/19/2021 FINDINGS: Lung bases are unremarkable. Heart size normal. No significant pleural or pericardial effus ion. Small fat-containing supraumbilical hernia. No renal stones or hydronephrosis. Fatty infiltratio n of the liver. Gallbladder is present. There is a port entry site in the right upper abdomen. The sp elizabeth, pancreas, adrenal glands and kidneys are unremarkable. Ureters are normal in course and caliber . Bladder is unremarkable. Colonic diverticulosis without evidence for diverticulitis. No lymphadenop athy. There is a left adnexal cyst, likely ovarian. No significant vascular abnormality. No lymphaden opathy. No free air or free fluid. IMPRESSION: 1. No acute abdominal abnormality. No findings to account for hematuria. Reviewed, dictated and finalized at location B.
[2022-12-16 10:02] LABS: Estimated Glomerular Filt Rate > 60
== END 2022-12-16 09:36 | disposition home or self-care (01) ==
PROVIDERS: PCP Family Medicine; Visit Provider Physician Assistant Medical
DX: R31.9 Hematuria, unspecified (principal); R10.9 Unspecified abdominal pain
CPT/HCPCS: 74178; Q9967

== ENCOUNTER 2023-08-16 15:57 | Emergency (ER) | payer BC, SELFPAY ==
--- NOTE | ~2023-08-16 | CT_ITS ---
CT abdomen pelvis w con Ordering provider: Grant Javier MD History: 43 years Female with . Acute abdominal pain . Comparison: December 16, 2022 Technique: CT abdomen and pelvis with IV and without oral contrast. Automated exposure control and it erative reconstruction technique were employed. The dose-length product was 688.78 mGy-cm. 100 mL Omn ipaque 350 was given IV. Findings: VISUALIZED LOWER CHEST: Normal. UPPER ABDOMINAL ORGANS: Liver: Fat infiltration. Gallbladder: Normal. Spleen: Normal. Stomach/duodenum: Normal. Pancreas: Normal. Adrenals: Normal. Kidneys: Normal. PELVIC ORGANS: The bladder is underfilled and shows slightly thickened wall.. BOWEL AND MESENTERY: Colon: Mild sigmoid diverticulosis without diverticulitis. Normal appendix. Small Bowel: Normal. No obstruction. Peritoneum/mesentery: No free air or free fluid. No mesenteric lymphadenopathy. RETROPERITONEUM: Mild atheromatous disease of the abdominal aorta. No retroperitoneal lymphadenopat hy. MUSCULOSKELETAL: Superficial soft tissues: Fat containing small anterior abdominal wall hernia. The superficial soft t issues are normal. Bones: Age appropriate degenerative changes of the spine. IMPRESSION: 1. No acute abdominal process with no evidence of appendicitis, diverticulitis or intestinal obstruc tion. 2. Fat infiltration of the liver 3. Anterior abdominal wall fat-containing hernia. 4. Slightly thickened wall of the urinary bladder which may indicate cystitis. Reviewed, dictated and finalized at location A. IMPRESSION: 1. No acute abdominal process with no evidence of appendicitis, diverticulitis or intestinal obstruction. 2. Fat infiltration of the liver 3. Anterior abdominal wall fat-containing hernia. 4. Slightly thickened wall of the urinary bladder which may indicate cystitis.
[2023-08-16 15:59] VITALS: BP 189/109; PULSE 69; RESP 20; TEMP 36.9; O2SAT 100
--- NOTE | 2023-08-16 16:00 | ED.ABDPAIN ---
HPI - Abdominal Pain General Chief Complaint: Abdominal Pain Stated Complaint: abdominal pain Time Seen by Provider: 08/16/23 16:00 Source: patient Mode of arrival: ambulatory Limitations: no limitations History of Present Illness HPI narrative: 43 old female history of anxiety/depression, hypertension, hypothyroidism, kidney stones, status post hysterectomy presents to the ER with a 1 hour history of -- diffuse abdominal pain after she was attempting to move a mattress. The pain was severe and acute in onset. Patient has nausea without any vomiting. No diarrhea. No fever or chills. No prior history of similar abdominal pains. MD elicited complaint: abdominal pain Pertinent past history: other ( Recent hysterectomy) Onset (ago): hour(s) ( 1 hour) Pain Consistency: constant Location: periumbilical Severity: severe Quality: aching Radiation: none Migration to: no migration Exacerbating factors: nothing Relieving factors: nothing Related Data Allergies Allergy/AdvReac Type Severity Reaction Status Date / Time trazodone AdvReac Intermediate Gastrointestinal Verified 08/16/23 16:04 Upset Review of Systems Review of Systems: All systems reviewed & are unremarkable except as noted in HPI and below Constitutional: Constitutional: Reports as per HPI Eyes: Eyes: Reports as per HPI ENT: Reports system reviewed and no additional complaints, except as documented Cardiovascular: Cardiovascular: Reports as per HPI and Reports no additional cardiovascular complaints Respiratory: Respiratory: Reports as per HPI and Reports no additional respiratory complaints Gastrointestinal: Gastrointestinal: Reports as per HPI and Reports no additional gastrointestinal complaints Comments: diffuse abdominal pain nausea without any vomiting or diarrhea. Genitourinary: Genitourinary: Reports no additional female genitourinary complaints and Reports as per HPI Musculoskeletal: Musculoskeletal: Reports no additional musculoskeletal complaints and Reports as per HPI Integumentary/Breasts: Skin/Breast: Reports system reviewed and no additional complaints, except as docu and Reports as per HPI Neurologic: Reports system reviewed and no additional complaints, except as documented and Reports as per HPI Psychiatric: Psychiatric: Reports no additional psychiatric complaints and Reports as per HPI Endocrine: Endocrine: Reports no additional endocrine complaints and Reports as per HPI Hematologic/Lymphatic: Hematologic/Lymphatic: Reports no additional hematologic/lymphatic complaints and Reports as per HPI Allergic/Immunologic: Allergic/Immunologic: Reports no additional allergic/immunologic complaints and Reports as per HPI [facility] Past Medical History Medical History Abnormal uterine bleeding Anemia BMI 32.0-32.9,adult BMI 33.0-33.9,adult BMI 34.0-34.9,adult Body mass index [BMI] 29.0-29.9, adult (04/15/16) Body mass index [BMI] 33.0-33.9, adult (06/21/18) Depression Encounter for counseling regarding contraception Flank pain Hematuria HTN (hypertension) Hypothyroidism Insomnia Left lateral abdominal pain Urinary calculus, unspecified Surgical History Surgical History Hx of hysterectomy June 2021 Family History Family History Grandparent Diabetes mellitus Family history of type 1 diabetes mellitus Mother Depression Hypertension Father Hypertension Anxiety Sibling No problems noted. Social History Social History Smoking status: Never smoker Second hand tobacco smoke exposure: No Alcohol intake: never Drinks per week: 0 Substance use: current Substance use type: marijuana Other substance usage details: Daily Last use: 09-14-20 Lack of Transportation: No Lack of Fo
[2023-08-16 16:23] LABS: Basophils Absolute Auto 0.05 K/mm3 (0.00-0.10); Basophils Percent Auto 0.5 % (0.0-1.0); Eosinophils Absolute Auto 0.22 K/mm3 (0.02-0.50); Hematocrit 37.9 % (35.0-49.0); Hemoglobin 13.3 g/dL (12.0-15.0); Immature Granulocyte Absolute 0.06 K/mm3 (0.00-0.00); Immature Granulocyte Percent A 0.5 % (0.0-0.0); Lymphocytes Absolute Auto 4.28 K/mm3 (1.10-4.50); Lymphocytes Percent Auto 38.9 % (18.0-42.0); Mean Corpuscular HGB Conc 35.1 g/dL (32-36); Mean Corpuscular Hemoglobin 30.6 pg (27.0-31.0); Mean Corpuscular Volume 87.3 fL (78.0-102.0); Mean Platelet Volume 9.2 fl (9.2-11.8); Monocytes Absolute Auto 0.72 K/mm3 (0.10-0.90); Monocytes Percent Auto 6.5 % (2.0-11.0); Neutrophils Absolute Auto 5.68 K/mm3 (1.70-7.20); Neutrophils Percent Auto 51.6 % (50.0-70.0); Platelet Count Result 440 K/mm3 (150-420); Red Blood Count 4.34 M/mm3 (4.20-5.40); Red Cell Distribution Width 12.3 % (11.6-14.4)
[2023-08-16 16:24] LABS: Appearance Urine Clear (Clear); Bilirubin Urine Negative (Negative); Blood Urine 1+ (Negative); Color Urine Light Yellow (Yellow); Glucose Urine UA Negative (Negative); Ketones Urine Negative (Negative); Leukocyte Esterase Ur Negative LEU/UL (Negative); Nitrate Urine Negative (Negative); Protein Urine Negative (Negative); Urobilinogen Urine 0.2 mg/dL (0.2-1.0)
[2023-08-16] MEDS: LACTATED RINGERS 1,000 ML 999 ML IV CONT (16:25)
[2023-08-16] MEDS: HYDROmorphone HCL INJ (*CRX) 2 MG/ML VIAL 0.5 MG IV PUSH (16:25)
[2023-08-16] MEDS: ONDANSETRON INJ 4 MG/2 ML VIAL IV PUSH (16:25)
[2023-08-16 16:29] LABS: Add Urine Microscopic? YES; Bacteria Urine 2+ /hpf; Squamous Epithelial Cell Urine Few /hpf (Few); WBC Urine None seen /hpf (0-3)
[2023-08-16 16:36] LABS: Partial Thromboplastin Time 28.8 Sec (23.9-30.70)
[2023-08-16 16:37] LABS: Alanine Aminotransferase 21 U/L (14-59); Albumin Level 3.8 g/dL (3.4-5.0); Alkaline Phosphatase 71 U/L (46-116); Anion Gap 14 mmol/L (4-12); Aspartate Amino Transferase 19 U/L (15-37); Bilirubin,Total 0.4 mg/dL (0.00-1.00); Blood Urea Nitrogen 9 mg/dL (7-18); Calcium 9.2 mg/dL (8.5-10.1); Carbon Dioxide 21 mmol/L (21-32); Chloride 102 mmol/L (98-108); Estimated CRCL calculation 77 ml/min; Estimated Glomerular Filt Rate > 60; Glucose 90 mg/dL (70-99); Lipase 27 U/L (16-77); Osmolality Calculated 282 mOsm/kg (285-295); Potassium 3.4 mmol/L (3.5-5.1); Sodium 137 mmol/L (136-145); Total Protein 7.7 g/dL (6.4-8.2)
[2023-08-16 16:40] LABS: Lactic Acid Reflex 1.3 mmol/L (0.4-2.0)
[2023-08-16 16:56] VITALS: BP 129/79; PULSE 79; RESP 16; O2SAT 100
[2023-08-16 17:25] LABS: Pregnancy On Board Control Positive; Urine Pregnancy Test Negative
[2023-08-16 18:57] VITALS: BP 168/104; PULSE 57; RESP 18; TEMP 36.4; O2SAT 97
== END 2023-08-16 19:03 | disposition home or self-care (01) ==
PROVIDERS: Emergency Provider Internal Medicine Critical Care Medicine
DX: K43.9 Ventral hernia without obstruction or gangrene (principal); I10 Essential (primary) hypertension; F41.9 Anxiety disorder, unspecified; F32.A Depression, unspecified; E03.9 Hypothyroidism, unspecified
CPT/HCPCS: 36415; 74177; 80053; 81001; 81025; 83605; 83690; 85025; 85730; 96361; 96374; 96375; 99284; J1170; J2405; J7120; Q9967